=== PATIENT | female | born 1980 | race Asian ===

== ENCOUNTER 2017-05-22 08:53 | Inpatient (IN) | payer OTHER ==
[2017-05-22] VITALS (10 sets, daily range): BP systolic 110–130; BP diastolic 67–86; PULSE 16–99; RESP 16–18; TEMP 97.6–98.8; O2SAT 97–100
[~2017-05-22] VITALS: Ht 157.5 cm; Wt 67.0 kg
[2017-05-22] MEDS ORDERED: LACTATED RINGER'S 1000 ML INJ 1,000 ML IV ONE (09:48)
--- NOTE | 2017-05-22 09:48 | HHI.HP ---
History & Physical H&P Patient Name: Laurence Cassidy Unit Number: [id number] Date of : 1980 Patient Status: Registered Emergency Room Attending Doctor: Miguel Ángel Contreras II, MD HPI HPI Chief Complaint Contraction pain and bloody discharge mucus Date Seen: May 22, 2017 Time Seen: 09:30 Travel History International Travel<30 Days: No Contact w/Intl Traveler<30Days: No Known Affected Area: No History of Present Illness HPI Patient is 36-year-old female previous 1 is at 39 weeks gestation sees a doctor in [place] for care. She scheduled for repeat soon. She presents complaining of contractions this morning but more worrisome her was bloody clumpy mucus blood tinged material that she passed that scared her and so she came in to get checked. heart rate tracing is reactive and she is braden every 6-7 minutes. Weeks Gestation: 39 Para: 1 : 3 Last Menstrual Period: May 22, 2017 Miscarriage: 1 History (Limited) History Obstetric History Obstetric History 1 1 miscarriage Past Surgical History Narrative Surgical Social History Alcohol Use: No Tobacco Use: No Substance Abuse: No Allergies-Medications Allergies-Medications ROS Review of Systems General / Constitutional: No: Fever, Weight Gain, Chills, Other Eyes: No: Diploplia, Blurred Vision, Visual changes, Pain, Photophobia HENT: No: Headaches, Vertigo, Lightheadedness Cardiovascular: No: Irregular Rhythm, Chest Pain or Discomfort, Palpitations, Tachycardia, Syncope, Varicosities, Edema, Cyanosis Respiratory: No: Cough, Short of Breath, Other Gastrointestinal: Abdominal Pain, No: Nausea, Vomiting, Diarrhea Genitourinary: No: Decreased Urinary Output, Oliguria Musculoskeletal: No: Limited ROM, Weakness, Cramping, Edema, Pain Skin: No Rash, No Itching, No Dryness, No Lumps, No Change in Pigmentation, No Change in Nails, No Alopecia, No Lesions Neurologic: No: Weakness, Dizziness, Syncope, Focal Abnormalities, Coordination Problem, Headache, Slurred Speech, Seizures Psychiatric: No: Depression, Suicidal Ideations, Homicidal Ideation Endocrine: No: Heat Intolerance, Cold Intolerance, Polydipsia, Polyuria, Other Physical Exam Physical Exam Narrative GENERAL: Well-nourished, well-developed patient. SKIN: Warm and dry. HEAD: Normocephalic and atraumatic. EYES: No scleral icterus. No injection or drainage. ENT: No nasal drainage noted. Mucous membranes pink. Airway patent. NECK: Supple, trachea midline. No JVD. CARDIOVASCULAR: Regular rate and rhythm without murmurs, gallops, or rubs. RESPIRATORY: Breath sounds equal bilaterally. No accessory muscle use. BREASTS: Bilateral exam showed no masses , no retractions, no nipple discharge. ABDOMEN/GI: Abdomen soft, non-tender, bowel sounds present, no rebound, no guarding Gravid to [39-] weeks size Fundal Height: [39-] GENITOURINARY: External Genitalia: intact and normal in appearance BUS glands: [-] Cervix: [post-] Dilatation: [3-] Effacement: [50-] Station: [-3] Presentation: [vtx-] Membranes: [intact ] Uterine Contractions: [q 6-7 min-] FHT's: Category: [-1] Baseline: [-133] Reactive: [-yes] Variability: [-mod] Decels: [0-] EXTREMITIES: No cyanosis or edema. BACK: Nontender without obvious deformity. No CVA tenderness. NEUROLOGICAL: Awake and alert. Motor and sensory grossly within normal limits. Five out of 5 muscle strength in all muscle groups. Normal speech. Data Data [facility] Interpretation(s) The patient is a 36-year-old female previous scheduled for repeat soon in [place] is now 39 weeks gestation, and now in early labor cervix 3 cm 50% -3 vertex, she is braden every 6-7 minutes with discomfort. Passing of bloody show, heart rate tracing is reactive and she is braden on the monitor as above. Plan Patient was counseled that the section likely needed since she is going into labor and was given the option to have her section here or for her to go ahead and travel to [place] and have her done at her hospital by her doctor or team, since she only 3 cm and contractions are spaced out at this time she could probably make the trip to her doctor and hospital in [place] if she wanted to. If patient decides to stay here will proceed with the repeat section Diagnosis Diagnosis: Primary Impression: Uterine contractions during Additional Impressions: Previous section 39 weeks gestation of Miguel Ángel Contreras II, MD May 22, 2017 09:47 Miguel Ángel Contreras II, MD May 22, 2017 09:48
[2017-05-22] MEDS: LACTATED RINGER'S 1000 ML INJ 1,000 ML IV SCH ×4 (10:18→23:38)
[2017-05-22 10:30] LABS: AUTOMATED NEUTROPHIL # 5.3 TH/MM3 (1.8-7.7); BASOPHIL % 0.3 % (0.0-2.0); EOSINOPHIL % 0.4 % (0.0-4.0); HEMATOCRIT 35.4 % (35.0-46.0); HEMO FLAGS DIFF FINAL; LYMPHOCYTE # 1.2 TH/MM3 (1.0-4.8); MEAN CELL VOLUME 91.7 FL (80.0-100.0); MEAN CORPUSCULAR HGB CONC 34.8 % (32.0-36.0); MONO % 6.2 % (0.0-8.0); NEUT % 76.1 % (16.0-70.0); PLATELET COUNT 203 TH/MM3 (150-450); RED BLOOD COUNT 3.86 MIL/MM3 (4.00-5.30); RED CELL DISTRIBUTION WIDTH 14.2 % (11.6-17.2); WHITE BLOOD COUNT 6.9 TH/MM3 (4.0-11.0)
[2017-05-22] MEDS ORDERED: ONDANSETRON HCL 4 MG/2 ML VIAL ONE (10:41)
[2017-05-22] MEDS ORDERED: ceFAZolin 2 GM PREMIX 50 ML IV SCH (11:00)
[2017-05-22 11:07] LABS: BACTERIA, URINE RARE /hpf; BLOOD, URINE MOD (NEG); COMMENT (UR) CULT NOT INDICATED; CULTURE IF INDICATED CULT NOT INDICATED; GLUCOSE,URINE NEG (NEG); KETONE, URINE TRACE mg/dL (NEG); MUCUS URINE FEW /lpf (OCC); NITRITE,URINE NEG (NEG); SQUAMOUS EPITHELIAL CELL URINE 4 /hpf (0-5); URINE COLOR LIGHT-YELLOW (YELLW/STRAW)
[2017-05-22] MEDS ORDERED: CITRIC ACID-SODIUM CITRATE LIQ 30 ML UDC PO SCH (11:30)
[2017-05-22] MEDS ORDERED: HYDROmorphone HCL PCA 6 MG/30 ML IV ONE (11:31)
[2017-05-22] MEDS ORDERED: MORPHINE SULFATE 30 MG/30 ML PCA ONE (11:34)
[2017-05-22] MEDS ORDERED: OXYTOCIN 30 UNITS-500ML PREMIX 500 ML IV ONE (11:45)
[2017-05-22] MEDS ORDERED: NALOXONE HCL 0.4 MG/ML AMP IV PUSH PRN (11:45)
[2017-05-22] MEDS ORDERED: ONDANSETRON HCL 4 MG/2 ML VIAL IV PUSH PRN (11:45)
[2017-05-22] MEDS ORDERED: SODIUM CHLORIDE 0.9% FLUSH 10 ML FLUSH IV FLUSH PRN (11:45)
--- NOTE | 2017-05-22 11:55 | PD.OP ---
Operative Report Date of Surgery: May 22, 2017 Preoperative Diagnosis: Term intrauterine with prior now in labor desiring elective repeat Postoperative Diagnosis: Same Procedure: Repeat lower uterine segment transverse section: Patient was taken to the operating room and prepped and draped in dorsal supine position. After menstruation of general endotracheal anesthetic skin incision was made and carried out down through the abdominal wall to the level of the fascia which was nicked in the midline and extended bilaterally with scissors. The fascia was from the underlying muscle with sharp and blunt dissection. The muscles bluntly divided midline and the peritoneum was bluntly entered. A transverse hysterotomy was made with the scalpel and extended with digital traction. membranes were encountered and ruptured with clear fluid returning. The vertex was elevated out of the pelvic inlet and delivered through the hysterotomy. With fundal pressure and gentle traction remainder the infant followed easily. Cord was doubly clamped and cut and the baby was passed to the waiting attendants. Cord blood sample was obtained. The fundus was massaged until the placenta passed spontaneously. It was grossly normal and apparently intact. The hysterotomy was closed with a running suture of 0 Monocryl. After observing excellent hemostasis the paracolic gutters and posterior cul-de-sac were evacuated of blood and amniotic fluid. The uterus was replaced in the peritoneal cavity. The fascia was closed anteriorly with #1 PDS. The septations tissue was closed with 3-0 Vicryl and the skin with 4-0 subcuticular Vicryl and tissue glue. Anesthesia: Gen. endotracheal anesthetic Surgeon: Jose Barr Home Theater Expert(s): Resident Dr. Chiu Resident Surgeon: Aram Operation and Findings: Normal appearing tubes ovaries and uterus Jose Barr MD May 22, 2017 11:55
[2017-05-22] MEDS: MORPHINE SULFATE 30 MG/30 ML PCA IV SCH (12:04)
[2017-05-22] MEDS: PCA - TOTAL MG MORPHINE DELIVERED PER SHIFT SCH ×2 (14:00→22:00)
[2017-05-22] MEDS ORDERED: ACETAMINOPHEN 1000 MG/100 ML 100 ML IV SCH ×2 (14:00→19:15)
[2017-05-22] MEDS: ACETAMINOPHEN 1000 MG/100 ML 100 ML IV SCH (20:49)
[2017-05-22] MEDS ORDERED: OXYTOCIN 30 UNITS-500ML PREMIX 500 ML IV PRN (21:45)
[2017-05-23 00:30] VITALS: TEMP 98
[2017-05-23] MEDS: MORPHINE SULFATE 30 MG/30 ML PCA IV SCH (01:46)
[2017-05-23] MEDS: LACTATED RINGER'S 1000 ML INJ 1,000 ML IV SCH ×2 (02:37→05:54)
[2017-05-23] MEDS: ACETAMINOPHEN 1000 MG/100 ML 100 ML IV SCH (04:43)
[2017-05-23] MEDS: PCA - TOTAL MG MORPHINE DELIVERED PER SHIFT SCH ×2 (04:46→12:20)
[2017-05-23 06:00] VITALS: BP 96/57
[2017-05-23] MEDS ORDERED: IBUPROFEN 600 MG TAB PO PRN (09:45)
[2017-05-23] MEDS ORDERED: ACETAMINOPHEN 325 MG TAB PO PRN (09:45)
--- NOTE | 2017-05-23 11:38 | HHI.OB ---
Subjective Remarks 36 year old female s/p C/S at 39 wks gestation, POD 1. AFVSS. Patient reports she is feeling well. Bleeding is decreasing and pain is well- controlled. She is breast feeding and bonding well with baby. Not ambulating yet due to recent C/S. She is tolerating a diet without nausea or vomiting. She has not had a bowel movement. She has passed gas. Denies chest pain, dysuria, shortness of breath, or calf pain. Ni catheter in place. Objective Vitals/I&O Vital Signs Date Time Temp Pulse Resp B/P (MAP) Pulse Ox O2 Delivery O2 Flow Rate FiO2 05/23/17 06:00 96/57 (70) 05/23/17 04:46 18 05/23/17 01:55 18 05/23/17 01:46 18 05/23/17 00:30 98.0 05/22/17 22:00 18 05/22/17 19:40 98.8 98 16 110/67 (81) 97 05/22/17 12:44 129/82 (98) 05/22/17 12:38 16 05/22/17 12:37 88 100 05/22/17 12:29 130/79 (96) 05/22/17 12:28 91 100 05/22/17 12:15 16 16 100 05/22/17 12:15 129/79 (96) 05/22/17 12:04 12 05/22/17 12:00 91 18 05/22/17 12:00 128/86 (100) 05/22/17 11:45 97 05/22/17 11:45 99 18 127/84 (98) 05/22/17 11:40 97.6 05/22/17 11:40 16 Result Diagram: 05/22/17 1015 Objective Remarks GENERAL: Well-nourished, well-developed patient. CARDIOVASCULAR: Regular rate and rhythm without murmurs, gallops, or rubs. RESPIRATORY: Breath sounds equal bilaterally. No accessory muscle use. ABDOMEN/GI: Abdomen soft, non-tender, bowel sounds present. Incision: Clean, dry and intact. Fundus: Firm, non-tender at umbilicus. GENITOURINARY: Light to moderate bleeding. EXTREMITIES: No cyanosis or edema, non-tender, without signs of DVT. Medications and IVs Current Medications Medications (Trade) Dose Ordered Sig/Jim Route Start Time Stop Time Status Last Admin Cefazolin Sodium/ Dextrose 50 ml @ 100 mls/hr OFFENDER EMPLOYMENT SPECIALIST IV 05/22/17 11:00 05/26/17 10:59 05/22/17 10:28 (Bicitra Liq) 30 ml OFFENDER EMPLOYMENT SPECIALIST PO 05/22/17 11:30 05/26/17 11:29 05/22/17 10:27 Lactated Ringer's 1,000 ml @ 100 mls/hr Q10H IV 05/22/17 16:37 05/23/17 12:36 05/22/17 18:45 Oxytocin 500 ml @ 100 mls/hr UNSCH X1 PRN IV 05/22/17 21:45 05/23/17 21:44 (NS Flush) 2 ml UNSCH PRN IV FLUSH 05/22/17 11:45 (M-M-R Ii Inj) 0.5 ml ONCE ONCE SQ 05/23/17 16:00 05/23/17 16:01 (Boostrix Inj) 0.5 ml ONCE ONCE IM 05/23/17 16:00 05/23/17 16:01 (Zofran Inj) 4 mg Q6H PRN IV PUSH 05/22/17 11:45 (Narcan Inj) 0.4 mg UNSCH PRN IV PUSH 05/22/17 11:45 VENTILATION WORKER Dosage Infused (Pha) 1 Q8HR .XX 05/22/17 14:00 05/23/17 04:46 (Tylenol) 650 mg Q6H PRN PO 05/23/17 09:45 (Motrin) 600 mg Q6H PRN PO 05/23/17 09:45 (Percocet 5-325 Mg) 1 tab Q4H PRN PO 05/23/17 09:45 (Percocet 5-325 Mg) 2 tab Q4H PRN PO 05/23/17 09:45 (Ambien) 5 mg HS PRN PO 05/23/17 21:00 Assessment/Plan Assessment and Plan 36 yo female s/p C/S, POD 1 - AFVSS - Continue routine care - Motrin and Percocet PRN pain - Encourage OOB - Pelvic rest x 6 wks. Will need 1 week incision check. - Contraception: s/p vasectomy - Anticipate D/C 05/24 or 05/25 Woody Shane MD R2 May 23, 2017 11:38
[2017-05-23] MEDS: oxyCODONE/ACETAMINOPHEN 5 MG/325 MG TAB PO PRN ×3 (13:06→18:22)
[2017-05-23] MEDS ORDERED: MORPHINE SULFATE 2 MG/ML INJ IV PUSH ONE (15:00)
[2017-05-23] MEDS ORDERED: DIPHTH/TETANUS/ACEL PERTUSSIS (BOOSTER) 0.5 ML VIAL/PFS IM ONE (16:00)
[2017-05-23] MEDS ORDERED: MEASLES, MUMPS, RUBELLA VACCINE 0.5 ML VIAL SQ ONE (16:00)
[2017-05-23] MEDS ORDERED: ZOLPIDEM TARTRATE 5 MG TAB PO PRN (21:00)
[2017-05-23 21:20] VITALS: BP 81/50; PULSE 85; RESP 18; TEMP 98.5
[2017-05-23 23:25] VITALS: BP 98/61
[2017-05-24] MEDS: oxyCODONE/ACETAMINOPHEN 5 MG/325 MG TAB PO PRN ×5 (00:14→20:48)
[2017-05-24 07:40] VITALS: BP 102/67; PULSE 88; RESP 18; TEMP 98.6
--- NOTE | 2017-05-24 09:15 | HHI.OB ---
Subjective Remarks 36 year old female s/p C/S at 39 wks gestation, POD 2. AFVSS. Patient reports she is feeling well. Bleeding is decreasing and pain is well- controlled. She is breast feeding and bonding well with baby. Ambulating without difficulties. She is tolerating a diet without nausea or vomiting. She has not had a bowel movement. She has passed gas. Denies chest pain, dysuria, shortness of breath, or calf pain. Objective Vitals/I&O Vital Signs Date Time Temp Pulse Resp B/P (MAP) Pulse Ox O2 Delivery O2 Flow Rate FiO2 05/23/17 23:25 98/61 (73) 05/23/17 21:20 98.5 85 18 81/50 (60) Result Diagram: 05/22/17 1015 Objective Remarks GENERAL: Well-nourished, well-developed patient. CARDIOVASCULAR: Regular rate and rhythm without murmurs, gallops, or rubs. RESPIRATORY: Breath sounds equal bilaterally. No accessory muscle use. ABDOMEN/GI: Abdomen soft, non-tender, bowel sounds present. Incision: Clean, dry and intact. Fundus: Firm, non-tender at umbilicus. GENITOURINARY: Light to moderate bleeding. EXTREMITIES: No cyanosis or edema, non-tender, without signs of DVT. Medications and IVs Current Medications Medications (Trade) Dose Ordered Sig/Jim Route Start Time Stop Time Status Last Admin Cefazolin Sodium/ Dextrose 50 ml @ 100 mls/hr COMMODITY ANALYST IV 05/22/17 11:00 05/26/17 10:59 05/22/17 10:28 (Bicitra Liq) 30 ml COMMODITY ANALYST PO 05/22/17 11:30 05/26/17 11:29 05/22/17 10:27 (NS Flush) 2 ml UNSCH PRN IV FLUSH 05/22/17 11:45 (Zofran Inj) 4 mg Q6H PRN IV PUSH 05/22/17 11:45 (Narcan Inj) 0.4 mg UNSCH PRN IV PUSH 05/22/17 11:45 COMMODITIES BROKER Dosage Infused (Pha) 1 Q8HR .XX 05/22/17 14:00 05/23/17 04:46 (Tylenol) 650 mg Q6H PRN PO 05/23/17 09:45 (Percocet 5-325 Mg) 1 tab Q4H PRN PO 05/23/17 09:45 05/24/17 07:40 (Percocet 5-325 Mg) 2 tab Q4H PRN PO 05/23/17 09:45 05/23/17 18:22 (Ambien) 5 mg HS PRN PO 05/23/17 21:00 Assessment/Plan Assessment and Plan 36 yo female s/p C/S, POD 2 - AFVSS - Continue routine care - Motrin and Percocet PRN pain - Encourage OOB - Pelvic rest x 6 wks. Will need 1 week incision check. - Contraception: s/p vasectomy - Anticipate D/C 05/25 Woody Shane MD R2 May 24, 2017 09:15
[2017-05-24 12:30] VITALS: BP 92/62; PULSE 86; RESP 18
[2017-05-24 16:30] VITALS: BP 96/59; PULSE 82; RESP 18; TEMP 98.2
[2017-05-24 19:58] VITALS: BP 101/64; PULSE 88; RESP 16; TEMP 98.1
[2017-05-25] MEDS ORDERED: OXYC1TAB63 PO (06:31)
--- NOTE | 2017-05-25 06:32 | HHI.DCPOC ---
Discharge Care Plan Diagnosis: (1) delivery delivered Report Symptoms to Your Doctor -Temperature above 100.5 degrees -Redness, of incision or excessive or foul smelling drainage -Unusual pain or calf pain -Increased vaginal bleeding -Painful or difficulty urinating -Feelings of extreme sadness or anxiety after 2 weeks Goals to Promote Your Health * To prevent worsening of your condition and complications * To maintain your health at the optimal level Directions to Meet Your Goals Take your medications as prescribed Follow your dietary instruction Follow activity as directed Ensure plenty of rest for recovery Drink fluids for hydration Keep your appointments as scheduled Take your immunizations and boosters as scheduled If your symptoms worsen call your PCP, if no PCP go to Urgent Care Center or Emergency Room Smoking is Dangerous to Your Health. Avoid second hand smoke Call the 24-hour crisis hotline for domestic abuse at Woody Shane MD R2 May 25, 2017 06:32
[2017-05-25 07:40] VITALS: BP 99/65; PULSE 90; RESP 16; TEMP 98.1
--- NOTE | 2017-05-25 08:23 | HHI.OB ---
Subjective Remarks 36 year old female s/p C/S at 39 wks gestation, POD 3. AFVSS. Patient reports she is feeling well. Bleeding is decreasing and pain is well- controlled. She is breast feeding and bonding well with baby. Ambulating without difficulties. She is tolerating a diet without nausea or vomiting. She has not had a bowel movement. She has passed gas. Denies chest pain, dysuria, shortness of breath, or calf pain. Objective Vitals/I&O Vital Signs Date Time Temp Pulse Resp B/P (MAP) Pulse Ox O2 Delivery O2 Flow Rate FiO2 05/25/17 07:40 98.1 90 16 99/65 (76) 05/24/17 19:58 98.1 88 16 101/64 (76) 05/24/17 16:30 98.2 82 18 96/59 (71) 05/24/17 12:30 86 18 92/62 (72) Result Diagram: 05/22/17 1015 Objective Remarks GENERAL: Well-nourished, well-developed patient. CARDIOVASCULAR: Regular rate and rhythm without murmurs, gallops, or rubs. RESPIRATORY: Breath sounds equal bilaterally. No accessory muscle use. ABDOMEN/GI: Abdomen soft, non-tender, bowel sounds present. Incision: Clean, dry and intact. Fundus: Firm, non-tender at umbilicus. GENITOURINARY: Light to moderate bleeding. EXTREMITIES: No cyanosis or edema, non-tender, without signs of DVT. Medications and IVs Current Medications Medications (Trade) Dose Ordered Sig/Jim Route Start Time Stop Time Status Last Admin Cefazolin Sodium/ Dextrose 50 ml @ 100 mls/hr PROGRAM TECHNICIAN IV 05/22/17 11:00 05/26/17 10:59 05/22/17 10:28 (Bicitra Liq) 30 ml PROGRAM TECHNICIAN PO 05/22/17 11:30 05/26/17 11:29 05/22/17 10:27 (NS Flush) 2 ml UNSCH PRN IV FLUSH 05/22/17 11:45 (Zofran Inj) 4 mg Q6H PRN IV PUSH 05/22/17 11:45 (Narcan Inj) 0.4 mg UNSCH PRN IV PUSH 05/22/17 11:45 REGISTER IN CHANCERY Dosage Infused (Pha) 1 Q8HR .XX 05/22/17 14:00 05/23/17 04:46 (Tylenol) 650 mg Q6H PRN PO 05/23/17 09:45 (Percocet 5-325 Mg) 1 tab Q4H PRN PO 05/23/17 09:45 05/24/17 20:48 (Percocet 5-325 Mg) 2 tab Q4H PRN PO 05/23/17 09:45 05/23/17 18:22 (Ambien) 5 mg HS PRN PO 05/23/17 21:00 Assessment/Plan Assessment and Plan 36 yo female s/p C/S, POD 2 - AFVSS - Continue routine care - Motrin and Percocet PRN pain - Encourage OOB - Pelvic rest x 6 wks. Will need 1 week incision check. - Contraception: s/p vasectomy - Home today Woody Shane MD R2 May 25, 2017 08:23
[2017-05-25] MEDS: oxyCODONE/ACETAMINOPHEN 5 MG/325 MG TAB PO PRN (10:16)
== END 2017-05-25 11:13 | disposition home or self-care (01) | DRG 766 ==
LOC: HOBED 08:53 → H2EB 09:57 → H1EA 13:21
PROVIDERS: ADMIT Obstetrics & Gynecology Maternal & Fetal Medicine; ATTEND Obstetrics & Gynecology Maternal & Fetal Medicine
PROC: 10D00Z1 Extraction of Products of Conception, Low, Open Approach (ICD-10-PCS; principal; 2017-05-22)
DX: O34.211 Maternal care for low transverse scar from previous cesarean delivery (principal); Z37.0 Single live birth; Z3A.39 39 weeks gestation of pregnancy
CPT/HCPCS: 81001; 85025; 86850; 86900; 86901; 90715; J0131; J0690; J1170; J2270; J2405; J2590; J3010; J7120